=== PATIENT | male | born 1975 | race Caucasian/White ===

== ENCOUNTER 2024-04-02 10:15 | Outpatient (RCR) | payer OTHER, SELFPAY | END 2024-07-01 13:41 | disposition home or self-care (01) | PROVIDERS: PCP Family Medicine; Visit Provider Family Medicine | DX: G56.21 Lesion of ulnar nerve, right upper limb (principal); M77.01 Medial epicondylitis, right elbow; M79.641 Pain in right hand; M25.521 Pain in right elbow; Z51.89 Encounter for other specified aftercare | CPT/HCPCS: 97035; 97110; 97140; 97166; X5282 ==

== ENCOUNTER 2024-11-01 19:00 | Emergency (ER) | payer OTHER, SELFPAY ==
--- OUTSIDE RECORDS SUMMARY | 2024-11-01 19:01 | XMS_ITS | Continuity of Care Document ---
Author Organization [facility] Address [address] [place] [address] Phone Care Team Providers Care [facility] Insurance Clerk Name Role Phone Unavailable Unavailable Unavailable Allergies, Adverse Reactions, Alerts Substance Reaction Status Criticality No Known allergies Procedures Procedure Date Echo W/DOPPLER, COMPLETE Holter Monitor, Complete OFFICE/OUTPATIENT VISIT, NEW Advance Directives Directive Yes / No Effective Date File Name No Information Encounters Encounter Description Practice Location Reason(s) For Visit Diagnoses Date Provider Providers Copied on Encounter [facility], [address] [address], [place], [place], [id number], [place] tel:[phone] [facility] Main No Information Mar-0 3 No Information [facility], [address], [id number], [place] tel:[phone] [facility] Main No Information Mar-0 3 No Information Referring Provider: Len Jaquez, [facility] [address], [place], [address] . tel:[phone] [facility], [facility] [address], [id number], [place] tel:[phone] [facility] Main No Information Sep- 3 Arturo Harrington. [address] [place] [address], [id number], . tel:[phone] Referring Provider: Len Jaquez, [address] [place], [place] [address], [place], [address] . tel:[phone] OFFICE/OUTPAT IENT VISIT, NEW [facility], [facility] [address], [place], [place], [id number], tel:[phone] [facility] Main Palpitations 3 Arturo Harrington. [address] [address], [place], [place], [id number], . tel:[phone] Referring Provider: Len Jaquez, [facility] [address], [place], [address] . tel:[phone] Family History Family Member Type Diagnosis Age At Onset Father Problem (finding) coronary arterioscleros is Father Problem (finding) Myocardial infarction Payers Payer name Insurance type Covered libertarian ID Authorclementina simms(s) Jordan [id number] Social History Type Description Quantity Date Captured Comments Sex Male Smoking Status No Information Chief Complaint And Reason For Visit No Information Reason For Referral Reason For Referral No Information History Of Present Illness Encounter Date Complaint History Of Prese nt Illness No Information Functional Status Date Functional Assessmen t No Information Instructions Date Instruction Additional Infor mation No Information Assessments Type Assessment Date No Information Patient Care Teams Name Effective Dates (start - stop) Status Members No Information
--- OUTSIDE RECORDS SUMMARY | 2024-11-01 19:02 | XMS_ITS | Continuity of Care Document ---
Author Name [facility] Organization [facility] Care Team Providers Care Broadcast Systems Engineer Name Role Phone [facility] Unavailable Unavailable Problems Combined list of problems from [facility] facilities. It does not include entries that were removed or entered in error. Problem Status Onset Date Problem Type Date of Resolution Comments Source Allergic rhinitis Active Condition [place] [facility] Cervicalgia Active Condition [place] [facility] CTS - Carpal tunnel syndrome Active Condition [place] [facility] Deviated nasal septum Active Condition [place] ([facility]) Hyperlipidemia Active Condition [place] [facility] Low back pain Active Condition [place] [facility] Nasal congestion Active Condition [place] [facility] Shoulder pain Active Condition [place] [facility] Tinnitus Active Condition [place] [facility] Medications Combined list of outpatient medications from [facility] facilities.Medications provided include 1) outpatient medications from the last 15 months, and 2) patient-reported medications. Medication Details Route Status Patient Instructions Prescription Expires Prescription Number Last Dispense Date Ordering Provider Order Date Order Qty Source IBUPROFEN 600MG TAB TAKE ONE TABLET BY MOUTH THREE TIMES A DAY NEEDED ORAL ACTIVE MICHELET HARRIS 2018 [facility] MULTIVITAMI NS CAP/TAB TAKE ONE TABLET BY MOUTH EVERY DAY ORAL ACTIVE MICHELET HARRIS 2018 [facility] Immunizations Combined list of available immunizations from the [facility] facilities. Immunization Series Date Given Administered By Site Reaction Lot Number CVX Code Drug Hair Sample Matcher Status Comments Source INFLUENZA, INJECTABLE, QUADRIVALENT 2018 158 complet ed Partner: [facility]. Administe red by: RUMA LAKHANI (KUS=[phone] [id number]). Partner 3 Lot#: [id number] Mfr: SEQIRUS; Dosage: 0.5 [facility] INFLUENZA, SEASONAL, INJECTABLE 2017 141 complet ed [facility] INFLUENZA, SEASONAL, INJECTABLE 2015 141 complet ed [place] [facility] TDAP 2014 115 complet ed [facility] [employer] Encounters Combined list of: 1) Encounters from Department of Veterans Affairs facilities going backup to the last 18 months, not all [place] inpatient encounters are included; 2) Encounters from the [facility] facilities going backup to 280 months. Location Location Details Encounter Type Encounter Number Reason For Visit Attending Provider ADM Date DC Date Status Disposition Source [place] [facility] Outpatient Encounter [id number] 08/14 [facility] [place] [facility] En[facility] [id number] 09/[address] [facility] [place] [facility] En[place] [id number] 10/01 [facility] [place] [facility] [place] En[place] [id number] 03/04 [facility] [place] [facility] [place] En[place] [id number] Renato PORTILLO 03/05 [facility] [place] [facility] [place] En[facility] [id number] 03/05 [facility] [place] [facility] [place] En[place] [id number] 05/12 [facility] [place] [facility] [place] [facility] [id number] 05/13 [facility] [place] [facility] [place] En[place] [id number] 05/14 [facility] [place] [facility] [place] [facility] [id number] 05/21 [facility] [place] [facility] [place] En[place] [id number] 05/26 [facility] [place] [facility] [place] [facility] [id number] 05/27 [facility] [place] [facility] [place] En[place] [id number] 05/29 [place] [facility] [place] [facility] Outpatient Encounter [id number] 06/04 [place] [facility] [place] [facility] Outpatient Encounter [id number] 06/06 [place] [facility] [place] [facility] Outpatient Encounter [id number] 06/10 [place] [facility] [place] [facility] Outpatient Encounter [id number] 07/24 [place] [facility] [place] [facility] Outpatient Encounter [id number] 09/24 [place] [facility] [place] [facility] Outpatient Encounter [id number] 09/26 [place] [facility] [place] [facility] Outpatient Encounter [id number] 09/29 [place] [facility] [place] [facility] Outpatient Encounter [id number] 10/03 [place] [facility] [place] [facility] Outpatient Encounter [id number] 10/14 [place] [facility] [place] [facility] Outpatient Encounter [id number] 10/27 [facility] Social History Combined list of available smoking, tobacco, and other social history from Department of Defense and Veterans Affairs facilities. Social History Type Response Date Comment Sour e Tobacco smoking status [facility]-TOBACCO FORMER USER 08/01/2018 [place] ([place]) History of tobacco use [place]-TOBACCO QUIT 5 TO < 15 YRS 08/01/2018 [place] ([facility]) History of tobacco use FORMER TOBACCO US E >1Y <7Y 04/27/2016 [place] [facility] Plan of Care List of future care activities from Department of Veterans Affairs facilities. Additional future care activities may be listed in the Assessment and Plan section. Date/Time Care Activity Care Activity Detail Facili ty 09/30/2024 Consult Order COMMUNITY CARE-C HIROPRACTIC Cons Circular Clerk's Choice [facility]
--- OUTSIDE RECORDS SUMMARY | 2024-11-01 19:02 | XMS_ITS | Encounter Summary ---
Author Name [facility] Organization [facility] Address [address] [place] [address] Care Team Providers Care Valver Name Role Phone HERNÁN MUÑOZ Primary Care Provider UnavailELLIS Solano Unavailable Unavailable FAIZAN ABEBE Unavailable Unavailable MEENA LAKHANI Unavailable Unavailable CHELSEA SENA Unavailable Unavailable MELVIN PORTER Unavailable Unavailable Selected Encounter This section includes the information on record at [place] for the Encounter. Date/Time Encounter Type Encounter Description Reason Pro vider Source Oct 27, 2024 03:17 PM Outpatient Encounter COMMUNITY CARE CONSULT IHE Encounter Template Text not used by VA Plan of Treatment: Future Appointments (+ 6 months) and Future Tests (+/- 45 days) The Plan of Treatment section includes future care activities for the patient from all VA treatmentfacilities. This section includes future appointments and future orders which are active, pending or scheduled. Active, Pending, and Scheduled Orders This section includes a listing of several types of active, pending, and scheduled orders, including clinic medications orders, diagnostic test orders, procedure orders and consult orders; where the start date of the order is 45 days before the date of the Encounter or 45 days after the date of theEncounter. The data comes from all [place] treatment facilities. Test Date/Time Test Type Test Details Facility Name Sep 30, 2024 07:06 AM Consult Order COMMUNITY CARE-CHIROPRACTIC Cons Cellophane Bag Machine Operator's Choice [facility] Encounter Notes: All associated encounter notes This section contains the clinical notes associated to the Encounter. Date/Time Encounter Note(s) Provider Source Oct 27, 2024 03:17 PM NONVA NOTE: LOCAL TITLE: COMMUNITY CARE-CARE COORDINATION PLAN NOTE STANDARD TITLE: NONVA NOTE DATE OF NOTE: OCT 27, 2024@15:17 ENTRY DATE: OCT 27, 2024@15:17:28 AUTHOR: MICHELET PORTILLO EXP COSIGNER: URGENCY: STATUS: COMPLETED Patient calls needing PT for neck/shoulder issues recommended by his [facility] Primary Care provider. I told him to call the [facility] [place] PT scheduling phone # [phone] option #1 for PT and they will schedule/place referral bases on availablity of appts. /grupo/ MICHELET PORTILLO, RN Registered Nurse, [facility] Signed: 10/27/2024 15:22 MICHELET PORTILLO [facility]
--- OUTSIDE RECORDS SUMMARY | 2024-11-01 19:02 | XMS_ITS | Encounter Summary ---
Author Name [facility] Organization [facility] Address [address] [place] [address] Care Team Providers Care Director Television News Name Role Phone HERNÁN MUÑOZ Primary Care Provider UnavailELLIS Solano Unavailable Unavailable FAIZAN ABEBE Unavailable Unavailable MEENA LAKHANI Unavailable Unavailable CHELSEA SENA Unavailable Unavailable MELVIN PORTER Unavailable Unavailable Selected Encounter This section includes the information on record at [place] for the Encounter. Date/Time Encounter Type Encounter Description Reason Pro vider Source Oct 14, 2024 07:43 AM Outpatient Encounter COMMUNITY CARE CONSULT IHE Encounter [...] of theEncounter. The data comes from all [place] treatment facilities. Test Date/Time Test Type Test Details Facility Name Sep 30, 2024 07:06 AM Consult Order COMMUNITY CARE-CHIROPRACTIC Cons Account Maintenance Representative's Choice [facility] Encounter Notes: All associated encounter notes This section contains the clinical notes associated to the Encounter. Date/Time Encounter Note(s) Provider Source Oct 14, 2024 07:43 AM NONVA NOTE: LOCAL TITLE: COMMUNITY CARE PRE-AUTH LETTER (AUTOPRINT) STANDARD TITLE: NONVA NOTE DATE OF NOTE: OCT 14, 2024@07:43 ENTRY DATE: OCT 14, 2024@07:43:47 AUTHOR: ONELIA FREITAS COSIGNER: URGENCY: STATUS: COMPLETED Oct DEVIKA BAILEY [address] [place] [address] Dear DEVIKA BAILEY, Your VA provider has referred you to a provider within the community for care. Your medical care for CHIROPRACTIC has been authorized with the community care provider listed below. DO NOT REPORT TO THE [place] MEDICAL CENTER Provider info: Care has been approved for the following vendor: Office name, address, and phone number: [facility] [address] [place] [address] PH: [phone] Please contact the identified provider to schedule your community appointment. If you need assistance with this appointment, please call your facility community care office [facility] Office of Community Care at [phone] during the hours of 8:30AM - 3:00PM. Please follow up with your local [facility] community care office once this is scheduled. This step is needed to ensure your referral duration is maximized and the [place] has accurate referral information for billing purposes. Authorization Number: [id number] Referral Issue Date: Oct Expiration Date: December (subject to change based on first appointment) If you are unable to schedule this appointment or the appointment is no longer needed, please contact the community provider above for notification/rescheduling and then call the [facility] Office of Community Care at [phone] during the hours of 8:30AM - 3:00PM. If you need additional care/services not mentioned above or your authorization has and additional care is needed, please contact your primary care provider for a new referral. To review all care/service(s) approved under your referral, please go to the following link: [email or web address]) Co-Payments: If you are required to pay a VA co-payment, you will be billed by the [place] for each authorized visit that you attend. However, you are NOT REQUIRED to make co-payments to a community provider. Thank you for the opportunity to serve you. Sincerely, [place] Community Care (VACC) /grupo/ ONELIA FREITAS Reeling Machine Setup Operator Signed: 10/14/2024 07:46 ONELIA FREITAS [facility]
--- OUTSIDE RECORDS SUMMARY | 2024-11-01 19:02 | XMS_ITS | Encounter Summary ---
Author Name [facility] Organization [facility] [place] Address [address] [place] [address] Care Team Providers Care Tea Plantation Worker Name Role Phone HERNÁN MUÑOZ Primary Care Provider UnavailELLIS Solano Unavailable Unavailable FAIZAN ABEBE Unavailable Unavailable MEENA LAKHANI Unavailable Unavailable CHELSEA SENA Unavailable Unavailable MELVIN PORTER Unavailable Unavailable Selected Encounter This section includes the information on record at [place] for the Encounter. Date/Time Encounter Type Encounter Description Reason Pro vider Source Sep 24, 2024 03:36 PM Outpatient Encounter COMMUNITY CARE CONSULT IHE [...] of theEncounter. The data comes from all [place] treatment facilities. Test Date/Time Test Type Test Details Facility Name Sep 30, 2024 07:06 AM Consult Order COMMUNITY CARE-CHIROPRACTIC Cons Catalyst Plant Supervisor's Choice [facility] Encounter Notes: All associated encounter notes This section contains the clinical notes associated to the Encounter. Date/Time Encounter Note(s) Provider Source Sep 24, 2024 03:36 PM NONVA NOTE: LOCAL TITLE: COMMUNITY CARE-CARE COORDINATION PLAN NOTE STANDARD TITLE: NONVA NOTE DATE OF NOTE: SEP 24, 2024@15:36 ENTRY DATE: SEP 24, 2024@15:37:02 AUTHOR: MICHELET PORTILLO COSIGNER: URGENCY: STATUS: COMPLETED Patient calls asking about his Advanced Manufacturing Consultant Has Chiropractic Consult #[id number] Valid for 12 visits over 90 days on 09/08/2024 Referral Number: [id number] Priority: Routine Referral Issue Date: 2024-06-06 Expiration Date: 2024-09-08 First Appointment Date: 2024-06-10 Patient states he only went for 2 appts and the last was on 09/15/2024 and asks if he could get this covered by [place]. I told him unfortunately since this visit was passed the authorization period the [place] will not cover it. He is working to only pay half since vendor did not realize this as well. He was appreciative of the call back. /grupo/ MICHELET PORTILLO, RN Registered Nurse, Care in Community Signed: 09/25/2024 12:48 MICHELET PORTILLO [facility]
--- OUTSIDE RECORDS SUMMARY | 2024-11-01 19:02 | XMS_ITS | Encounter Summary ---
Author Name [facility] Organization [facility] Address [address] [place] [address] Care Team Providers Care Compensation And Hris Analyst Name Role Phone HERNÁN MUÑOZ Primary Care Provider UnavailELLIS Solano Unavailable Unavailable FAIZAN ABEBE Unavailable Unavailable MEENA LAKHANI Unavailable Unavailable CHELSEA SENA Unavailable Unavailable MELVIN PORTER Unavailable Unavailable Selected Encounter This section includes the information on record at [place] for the Encounter. Date/Time Encounter Type Encounter Description Reason Pro vider Source Sep 26, 2024 12:00 PM Outpatient Encounter COMMUNITY CARE CONSULT IHE [...] of theEncounter. The data comes from all [place] treatment facilities. Test Date/Time Test Type Test Details Facility Name Sep 30, 2024 07:06 AM Consult Order COMMUNITY CARE-CHIROPRACTIC Cons Customer Service Associate's Choice [facility] Encounter Notes: All associated encounter notes This section contains the clinical notes associated to the Encounter. Date/Time Encounter Note(s) Provider Source Sep 26, 2024 12:00 PM NONVA CONSULT: LOCAL TITLE: COMMUNITY CARE CONSULT RESULT CHIROPRACTIC STANDARD TITLE: NONVA CONSULT DATE OF NOTE: SEP 26, 2024@12:00 ENTRY DATE: SEP 29, 2024@11:23:19 AUTHOR: ARIEL ALDANA EXP COSIGNER: URGENCY: STATUS: COMPLETED VistA Imaging - Scanned Document RFAS dated 09/26/24, Cover letter states only attended one of the 12 visits approved. SCANNED DOCUMENT SIGNATURE NOT REQUIRED Electronically Filed: 09/29/2024 by: ARIEL ALDANA LPN LICENSE PRACTICAL NURSE ARIEL ALDANA [facility]
--- OUTSIDE RECORDS SUMMARY | 2024-11-01 19:02 | XMS_ITS | Clinical Summary ---
Author Organization [employer] [facility] Address [address] [place] [address] Care Team Providers Care [employer] Name Role Phone Adolfo Contreras MD Primary Care Provider Allergies No known active allergies Medications atorvastatin (LIPITOR) 20 mg tabletIndications: Hyperlipidemia, unspecified hyperlipidemia type Take 1 Tablet (20 mg) by mouth at bedtime. 90 Tablet 3 5 Active losartan-hydrochlo rothiazide, 50-12.5 mg, (HYZAAR) 50-12.5 mg tabletIndications: Benign essential HTN Take 1 Tablet by mouth once daily. 90 Tablet 3 5 Active fluticasone (50 mcg per actuation) nasal solution (FLONASE)Indicatio ns:Acute maxillary sinusitis, recurrence not specified Inhale 2 Sprays to both nostrils once daily. 16 g 12 4 025 Discontin ued(*Sophia ent states no longer taking) Active Problems Problem Noted Date Diagnosed Date Elevated coronary artery calcium score 74%ile 20 19. 11/22/2022 Benign essential HTN 09/07/2021 Near syncope 09/28/2020 Lichen planus Chronicus nipples 06/02/2020 Hyperlipidemia 08/15/2017 Chronic sinusitis 09/28/2016 Resolved Problems Problem Noted Date Diagnosed Date Resolved Date Light headed 08/16/2020 11/22/2022 Overview (08/16/2020): 07/2020 ZIO patch 3 runs of NSVT, longest 15 seconds. Discussed with cardiology 08/16/2020: Given normal echo and normal CT angiogram (04/2019), no further work- up necessary. Patient reports feeling much better after frontal sinus surgery on 07/08/2020. Encounters Date Type Department Care Team Description 10/10/2024 9:15 AM TRUCK STRIKER Ancillary Procedure [facility] [address] [place] [facility] [facility] [place] [address] 10/10/2024 8:25 AM TRUCK STRIKER Office Visit [facility] [address] [place] [address] Adolfo Contreras MD Neck Pain/problem (Discuss neck concerns) 10/10/2024 Travel 10/08/2024 9:20 AM TRUCK STRIKER Telemedicine [facility] [place] - [address] [place] [address] Delmis Villar NP CV Electrophysiology Est 10/08/2024 Telephone [facility] [address] [place] [address] Nani Sinclair RN, CCRN LINQ Removal 10/08/2024 Travel 09/24/2024 Telephone [facility] [place] [address] On License Of [facility] [place] [phone] Brittany Gomez RN 09/17/2024 3:20 PM TRUCK STRIKER Office Visit [facility] [address] [place] [facility] [place] [address] Adolfo Contreras MD Physical (48 year old ); Concerns (brain fog - present for years ) 09/17/2024 8:45 AM TRUCK STRIKER Orders Only [facility] [address] [place] [facility] [facility] [place] [address] Lab, [place] [facility] 09/17/2024 Travel 09/17/2024 Orders Only [facility] [address] [facility] [place] [facility] [place] [address] Adolfo Contreras MD <No scans attached> from Last 3 Months Immunizations Immunization Administration Dates Next Due AMB Influenza, IIV4 PF (=>6 mos Flulaval,Fluzone Fluarix)(Flu Clinic Only) 05/10/2018 Hepatitis A (Adult) 07/05/1998,07/21/1997 Hepatitis B (Adult) 01/05/2015 Influenza A (H1N1), Inactivated 08/05/2009 Influenza Virus, Unspecified 07/05/1998 Influenza, IIV3 (Age >=3 years) 05/10/20 18,04/27/2016,05/21/2015,2013,05/07/2013,05/03/2012,04/07/2011,1 ,05/28/2009,06/26/2008, 006,06/20/2005 Influenza, IIV4 06/24/2023,07/28/2021 Influenza, IIV4 (=>6mos) MDV 05/03/2019 Influenza, Whole Virus 04/07/2011,05/14/2010, Influenza, split (incl. jennifer fied surface antigen) 05/28/2009,06/26/2008,07/12/2006,2004 Influenza,CCIIV4 PRESERV FREE 05/20/2022, 020,05/18/2017 MMR 03/23/1997,01/07/1996,02/19/1994 Measles 07/05/1998 Measles-Rubella 12/31/2003 Oral Polio Vaccine 02/21/1994 Td (Age >=7 Years) 12/22/2006,07/21/1997, 988 Tdap 12/23/2018,03/17/2016,01/05/2015 Tetanus Toxoid 07/21/1997 Tuberculin (PPD) 01/05/2015,12/18/2008 Typhoid (injectable) 01/03/2006 Typhoid Parenteral,Killed 12/31/2003 Typhoid, Unspecified 07/21/1997,08/28/1996 Varicella Vaccine 01/05/2015 Yellow Fever 12/22/2006,03/23/1998,03/23/1997 Family History Medical History Relation Name Comments Hyperlipidemia Brother 1 Hyperlipidemia Brother 2 Heart attack Father Hyperlipidemia Father Heart attack Mother Hyperlipidemia Mother Other Paternal Grandfather at 87. Anesthesia Problem No Family History Cancer-colon No Family History Cancer-prostate No Family History Diabetes No Family History Relation Name Status Comments Brother 1 Alive Brother 2 Alive Brother 3 Alive Brother 4 Alive Brother 5 Alive Daughter 1 Alive Daughter 2 Alive Daughter 3 Alive Father Alive Mother Alive Paternal Grandfather Sister Alive Social History Tobacco Use Types Packs/Day Years Used Date Smoking Tobacco: Former Smokeless Tobacco: Former Chew Tobacco Cessation:Counseling Given: No Alcohol Use Standard Drinks/Week Comments Yes 0 (1 standard drink = 0.6 oz pure alcohol) twice weekly, 1-2 drinks at a sitting PHQ-2 Answer Date Recorded PHQ-2 TOTAL SCORE 0 11/09/2023 Social Connections Answer Date Recorded Do you often feel lonely or isolated from those around you? 0 11/09/2023 Financial Resource Strain Answer Date R ecorded Difficulty of Paying Living Expenses 3 11/09/2023 Difficulty of Paying Living Expenses Not on file 11/09/2023 Food Insecurity Answer Date Recorded Do you worry your food will run out before you are able to buy more? 1 11/09/2023 Transportation Needs Answer Date Record ed Does lack of transportation keep you from medica l appointments? 1 11/09/2023 Does lack of transportation keep you from work, meetings or getting things that you need? 1 11/09/2023 Housing Stability Answer Date Recorded What is your housing situation today? 1 11/09/2023 Utilities Answer Date Recorded Do you have trouble paying f or utilities (for example, heat, electricity, water, phone)? 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 Not on file Not on file Obstetrics History Last Filed Vital Signs Vital Sign Reading Time Taken Comments Blood Pressure 120/83 10/10/2024 8:15 AM TRUCK STRIKER Pulse 78 10/10/2024 8:15 AM TRUCK STRIKER Temperature 36.7 C (98 F) 08/14/2023 10:42 AM TRUCK STRIKER Respiratory Rate 16 11/05/2021 4:00 PM CDT Oxygen Saturation 97% 10/10/2024 8:15 AM TRUCK STRIKER Inhaled Oxygen Concentration - - Weight 83.6 kg (184 lb 6.4 oz) 10/10/2024 8:15 A M TRUCK STRIKER Height 180 cm (5' 10.87) 09/17/2024 3:24 PM TRUCK STRIKER Body Mass Index 25.82 09/17/2024 3:24 PM TRUCK STRIKER Plan of Treatment Upcoming Encounters Date Type Department Care Team (Late st Contact Info) Description 11/18/2024 2:00 PM CDT Appointment [facility] [address] [place] [address] Al Rey MD [address] [facility] [address] [place] [address] 12/15/2024 8:30 AM CDT Office Visit [facility] [place] [facility] [place] [address] [facility] [address] [place] [phone] Al Rey MD [address] [facility] [address] [place] [address] Health Maintenance Due Date Last Done Comments Pneumococcal series for age 50+ (1 of 2 - PCV) 1992 Colonoscopy through age 75 2018 Zoster (shingles) series for age 50+ (1 of 2) 12/11/2023 COVID-19 vaccine series (2023- season) 2024 Influenza Vaccine (#1) 2024 , 05/20/2022, 07/28/2021, Additional history exists Depression screening for age 12+ 11/08/2024 11/09/2023, 09/21/2021, 09/07/2021, Additional history exists BMI (ht and wt on same day) for age 18+ 09/17/2025 09/17/2024, 08/14/2023, 10/24/2022, Additional history exists Tetanus booster 12/23/2028 12/23/2018, 03/06, 01/05/2015, Additional history exists Lipids for age 45-75 09/17/2029 09/17/2024, 11/09/2023, 11/22/2022, Additional history exists Tdap Completed 12/23/2018, 03/06, 01/05/2015 Hepatitis C screening for ag e 18-79 Completed 04/03/2022 HIV for age 15-65 Completed 11/22/2022 Medical Devices Implanted Type Area Bunch Maker Hand Device Identifier Shelf Expiration Date Model / Serial / Lot Stent Ent Reg Steroid-Releas ing [employer] Bio[employer] - [id number] Implanted:Qty: 1 on 03/07/2017 by Kartik Doran MD at [facility] Left: [employer] 12/05/2017 [id number]# / / [id number] Stent Ent Reg Steroid-Releas ing [employer] Bio[employer]orb - [id number] Implanted:Qty: 1 on 03/07/2017 by Kartik Doran MD at [facility] Right: [employer]ose [employer] 05/07/2018 [id number]# / / [id number] Procedures Procedure Name Priority Date/Time Associated Diagnosis Comments XR SPINE CERVICAL 3 VIEWS Routine 10/10/2024 9:11 AM TRUCK STRIKER Neck pain, chronic LIPID PANEL W REFLEX MEASURED LDL Routine 09/17/2024 8:46 AM TRUCK STRIKER Hyperlipidemia, unspecified hyperlipidemia type HEMOGLOBIN A1C Routine 09/17/2024 8:46 AM TRUCK STRIKER Prediabetes BASIC METABOLIC PANEL Routine 09/17/2024 8:46 AM TRUCK STRIKER Benign essential HTN PSA TOTAL Routine 09/17/2024 8:46 AM TRUCK STRIKER Prostate cancer screening LC HIV-1/O/2, 4TH GENERATION Routine 11/22/2022 8:55 AM CDT Encounter for screening for HIV ANTI HCV Routine 04/03/2022 10:06 AM CDT Need for hepatitis C screening test from Last 3 Months or Most Recently Relevant to Health Maintenance Results * XR SPINE CERVICAL 3 VIEWS (10/10/2024 9:11 AM TRUCK STRIKER) Anatomical Region Laterality Modality CERVICAL SPINE Computed Radiogr aphy 10/10/2024 10:3 1 AM TRUCK STRIKER Impressions 10/10/2024 10:31 AM TRUCK STRIKER 1. No radiographic evidence of acute osseous injury. Dictated by Leland Piper MD @ 10/10/2024 10:31:55 AM (Electronically Signed) Narrative 10/10/2024 10:31 AM TRUCK STRIKER For Patients: As a result of the Cures Act, medical imaging exams and procedure reports are released immediately into your electronic medical record. You may view this report before your referring provider. If you have questions, please contact your health care provider. INDICATION: Neck pain. FINDINGS: Three views of the cervical spine are submitted. No comparison. The overall stature and alignment of the cervical spine is within normal limits. The prevertebral soft tissues, dens and lateral masses are within normal limits. Intervertebral disc space height appears within normal limits. Procedure Note Cristhian Piper, DO - 10/10/2024 For Patients: As a result of the Cures Act, medical imagingexams and procedure reports are released immediately into your electronicmedical record. You may view this report before your referring provider.If you have questions, please contact your health care provider. INDICATION: Neck pain. FINDINGS: Three views of the cervical spine are submitted. No comparison. The overall stature and alignment of the cervical spine is within normallimits. The prevertebral soft tissues, dens and lateral masses are withinnormal limits. Intervertebral disc space height appears within normallimits. IMPRESSION: 1. No radiographic evidence of acute osseous injury. Dictated by Leland Piper MD @ 10/10/2024 10:31:55 AM (Electronically Signed) Adolfo Contreras MD GENERAL IMAGING Final Result * HEMOGLOBIN A1C (09/17/2024 8:46 AM TRUCK STRIKER) HEMOGLOBIN A1C 5.6 <5.7 % of total Hgb [facility] Comment: For the purpose of screening for the presence of diabetes: <5.7% Consistent with the absence of diabetes 5.7-6.4% Consistent with increased risk for diabetes (prediabetes) > or =6.5% Consistent with diabetes This assay result is consistent with a decreased risk of diabetes. Currently, no consensus exists regarding use of hemoglobin A1c for diagnosis of diabetes in children. According to [place] Diabetes Association (ADA) guidelines, hemoglobin A1c <7.0% represents optimal control in non- diabetic patients. Different metrics may apply to specific patient populations. Standards of Medical Care in Diabetes(ADA). Blood BLOOD SPECIMEN / Unknown 09/17/2024 8:46 AM TRUCK STRIKER 09/17/2024 8:47 AM TRUCK STRIKER Adolfo Contreras MD CHEMISTRY Final Result Decision [facility] [address] [place] [address], [facility] [place] [address] [place] [address] * LIPID PANEL W REFLEX MEASURED LDL (09/17/2024 8:46 AM TRUCK STRIKER) [facility] Signature CHOLESTEROL, TOTAL 160 <200 mg/dL [facility] HDL CHOLESTEROL 41 > OR = 40 mg/dL [facility] TRIGLYCERIDES 104 <150 mg/dL [facility] LDL-CHOLESTEROL 99 mg/dL (calc) [facility] Comment: Reference range: <100 Desirable range <100 mg/dL for primary prevention; <70 mg/dL for patients with CHD or diabetic patients with > or = 2 CHD risk factors. LDL-C is now calculated using the Roc-Russel calculation, which is a validated novel method providing better accuracy than the Friedewald equation in the estimation of LDL-C. Roc STEVENS et al. DENICE. 2013;310(19): 3635-8015 (http://education.[employer]/faq/GRS842) CHOL/HDLC RATIO 3.9 <5.0 (calc) [facility] NON HDL CHOLESTEROL 119 <130 mg/dL (calc) [facility] Comment: For patients with diabetes plus 1 major ASCVD risk factor, treating to a non-HDL-C goal of <100 mg/dL (LDL-C of <70 mg/dL) is considered a therapeutic option. Blood BLOOD SPECIMEN / Unknown 09/17/2024 8:46 AM TRUCK STRIKER 09/17/2024 8:47 AM TRUCK STRIKER Adolfo Contreras MD CHEMISTRY Final Result [facility] [address] [place] [address], [place] [phone] [facility] [place] [address] [place] [address] * PSA TOTAL (DIAG OR SCREEN) (09/17/2024 8:46 AM TRUCK STRIKER) PSA, TOTAL 0.38 < OR = 4.00 ng/mL [facility] Comment: The total PSA value from this assay system is standardized against the WHO standard. The test result will be approximately 20% lower when compared to the equimolar-standardized total PSA (Yaneth [place]). Comparison of serial PSA results should be interpreted with this fact in mind. This test was performed using the Siemens chemiluminescent method. Values obtained from different assay methods cannot be used interchangeably. PSA levels, regardless of value, should not be interpreted as absolute evidence of the presence or absence of disease. Blood BLOOD SPECIMEN / Unknown 09/17/2024 8:46 AM TRUCK STRIKER 09/17/2024 8:47 AM TRUCK STRIKER us Adolfo Contreras MD CHEMISTRY Final Result Decision [facility] [address] [place] [address], [place] [phone] [facility] [address] [place] [address] * BASIC METABOLIC PANEL (09/17/2024 8:46 AM TRUCK STRIKER) GLUCOSE 98 65 - 99 mg/dL [facility] Comment: Fasting reference interval UREA NITROGEN (BUN) 15 7 - 25 mg/dL [facility] CREATININE 1.01 0.70 - 1.30 mg/dL [facility] EGFR 91 > OR = 60 mL/min/1. 73m2 [facility] BUN/CREATININE RATIO SEE NOTE: 6 - 22 (calc) [facility] Comment: Not Reported: BUN and Creatinine are within reference range. SODIUM 141 135 - 146 mmol/L [facility] POTASSIUM 4.0 3.5 - 5.3 mmol/L [facility] CHLORIDE 101 98 - 110 mmol/L [facility] CARBON DIOXIDE 28 20 - 32 mmol/L [facility] ELECTROLYTE BALANCE 12 7 - 17 mmol/L (calc) [facility] CALCIUM 9.7 8.6 - 10.3 mg/dL [facility] Blood BLOOD SPECIMEN / Unknown 09/17/2024 8:46 AM TRUCK STRIKER 09/17/2024 8:47 AM TRUCK STRIKER Adolfo Contreras MD CHEMISTRY Final Result Decision [facility] [address] [place] [address], [facility] [address] [place] [address] * LC HIV-1/O/2, 4TH GENERATION (11/22/2022 8:55 AM CDT) HIV Scr 4th Gen Non Reactive Non Reactive 11/24/2022 1:09 PM CDT [facility] ([facility] Comment: HIV Negative HIV-1/HIV-2 antibodies and HIV-1 p24 antigen were NOT detected. There is no laboratory evidence of HIV infection. Blood BLOOD SPECIMEN / Unknown Venipuncture / Unknown 11/22/2022 8:55 AM CDT 11/22/2022 8:56 AM CDT Narrative [facility] ([facility]) - 11/24/2022 1:09 PM CDT Performed at: [address] [place] [id number] Locator: Chemo Husain MD, Phone: [phone] us Adolfo Contreras MD LABORATORY Final Result [facility] ([facility]) [facility] [place] [address], [place] * ANTI HCV (04/03/2022 10:06 AM CDT) HEPATITIS C ANTIBODY Non-React rachid Non-React rachid 04/03/2022 5:57 PM CDT [facility] Comment:Antibodies to HCV no t detected; does not exclude the possibility of exposure to HCV. Blood BLOOD SPECIMEN / Unknown Venipuncture / Unknown 04/03/2022 10:06 AM CDT 04/03/2022 10:07 AM CDT us Adolfo Contreras MD SEND OUTS Final Result [facility] [address] [place] [address], [place] from Last 3 Months or Most Recently Relevant to Health Maintenance Insurance [facility] Advance Directives * Full Code (Latest Code Status on File) Date Activated Date Inactivated Comments 09/28/2020 10:56 AM 09/28/2020 4:03 PM Question Answer Comments Code Status Discussion: Not Discussed * Full Code Date Activated Date Inactivated Comments 03/07/2017 10:21 AM 03/07/2017 7:15 PM Care Teams [employer] Relationship Specialty Start Date End Date Adolfo Contreras MD [address] [place] [address] PCP - General Family Practice 07/28/19
--- OUTSIDE RECORDS SUMMARY | 2024-11-01 19:02 | XMS_ITS | Encounter Summary ---
Author Name [facility] Organization [facility] Address [address] [place] [address] Care Team Providers Care Restaurant Shift Leader Name Role Phone HERNÁN MUÑOZ Primary Care Provider UnavailELLIS Solano Unavailable Unavailable FAIZAN ABEBE Unavailable Unavailable MEENA LAKHANI Unavailable Unavailable CHELSEA SENA Unavailable Unavailable MELVIN PORTER Unavailable Unavailable Selected Encounter This section includes the information on record at [facility] for the Encounter. Date/Time Encounter Type Encounter Description Reason Pro vider Source Oct 03, 2024 11:25 AM Outpatient Encounter COMMUNITY CARE CONSULT IHE [...] of theEncounter. The data comes from all [facility] treatment facilities. Test Date/Time Test Type Test Details Facility Name Sep 30, 2024 07:06 AM Consult Order COMMUNITY CARE-CHIROPRACTIC [place] [facility] Encounter Notes: All associated encounter notes This section contains the clinical notes associated to the Encounter. Date/Time Encounter Note(s) Provider Source Oct 03, 2024 11:25 AM NONVA NOTE: LOCAL TITLE: COMMUNITY CARE-CARE COORDINATION PLAN NOTE STANDARD TITLE: NONVA NOTE DATE OF NOTE: OCT 03, 2024@11:25 ENTRY DATE: OCT 03, 2024@11:25:27 AUTHOR: MICHELET PORTILLO EXP COSIGNER: URGENCY: STATUS: COMPLETED Patient calls asking has started getting vertigo issues and has neck problems. Talks about 0% service connection and where to go from here. I told him to make an appt with his CC PCP to discuss. He is aware that imaging if needed is covered under his current CC PCP consult. If his doctor would order EMG or referred to a specialist that is not covered and would need RFS sent to [facility] for preauthorization prior to appt to assure [facility] payment. I told him should he have questions after diagnosis of service connection to discuss with [facility]. He will call me after appt to discuss what is needed for his work-up. /grupo/ MICHELET PORTILLO, RN Registered Nurse, Care in [facility] Signed: 10/03/2024 11:33 MICHELET PORTILLO [facility]
--- OUTSIDE RECORDS SUMMARY | 2024-11-01 19:02 | XMS_ITS | Encounter Summary ---
Author Name [facility] Address [address] [place] [id number] Care Team Providers Care Contract Clerk Automobile Name Role Phone HERNÁN MUÑOZ Primary Care Provider UnavailELLIS Solano Unavailable Unavailable FAIAZN ABEBE Unavailable Unavailable MEENA LAKHANI Unavailable Unavailable CHELSEA SENA Unavailable Unavailable MELVIN PORTER Unavailable Unavailable Selected Encounter This section includes the information on record at [place] for the Encounter. Date/Time Encounter Type Encounter Description Reason Pro vider Source Sep 29, 2024 11:25 AM Outpatient Encounter COMMUNITY CARE [...] of theEncounter. The data comes from all [place] treatment facilities. Test Date/Time Test Type Test Details Facility Name Sep 30, 2024 07:06 AM Consult Order COMMUNITY CARE-CHIROPRACTIC Cons [employer] Manager[facility] Encounter Notes: All associated encounter notes This section contains the clinical notes associated to the Encounter. Date/Time Encounter Note(s) Provider Source Sep 30, 2024 07:09 AM ADDENDUM: LOCAL TITLE: Addendum STANDARD TITLE: ADDENDUM DATE OF NOTE: SEP 30, 2024@07:09:37 ENTRY DATE: SEP 30, 2024@07:09:38 AUTHOR: BRIDGETT SHEPHERD EXP COSIGNER: URGENCY: STATUS: COMPLETED Records reviewed in response to above notification with placement of the following consult: Chiropractic consult #[id number]; this consult will need to go through the RCI process for this drive time eligible patient. /grupo/ BRIDGETT SHEPHERD MD STAFF PHYSICIAN Signed: 09/30/2024 07:11 Receipt Acknowledged By: 09/30/2024 07:17 /grupo/ MICHELET PORTILLO RN Registered Nurse, Care in Community 09/30/2024 07:20 /grupo/ ARIEL ALDANA LPN LICENSE PRACTICAL NURSE ====== --- Original Document --- 09/29/24 COMMUNITY CARE-REQUEST FOR SERVICE NOTE: PACT: Please address Referral for additional services was received from patient's CHIROPRACTIC Provider, Danilo Doss. Please see RFAS and notes uploaded to CHIROPRACTIC, Consult #: [id number] Authorization 09/08/24. has used 1 of 12 visits. Alerting PACT for review and placement of new consult if indicated. RFS and records uploaded to [facility] note dated 09/26/24 for details ACTION NEEDED: Place new consult if clinically indicated, thank you. Please ensure plan of care is communicated to if new consult is not entered. [facility] Care [employer] ASSEMBLER to contact with questions regarding this care: DANIEL Jolley /grupo/ ARIEL ALDANA LPN LICENSE PRACTICAL NURSE Signed: 09/29/2024 11:27 Receipt Acknowledged By: 09/30/2024 07:09 /carlitos SHEPHERD MD STAFF PHYSICIAN BRIDGETT SHEPHERD [facility] Sep 29, 2024 11:25 AM NONVA NOTE: LOCAL TITLE: COMMUNITY CARE-REQUEST FOR SERVICE NOTE STANDARD TITLE: NONVA NOTE DATE OF NOTE: SEP 29, 2024@11:25 ENTRY DATE: SEP 29, 2024@11:25:56 AUTHOR: ARIEL ALDANA EXP COSIGNER: URGENCY: STATUS: COMPLETED COMMUNITY CARE-REQUEST FOR SERVICE NOTE Has ADDENDA PACT: Please address Referral for additional services was received from patient's CHIROPRACTIC Provider, Danilo Doss. Please see RFAS and notes uploaded to CHIROPRACTIC, Consult #: [id number] Authorization 09/08/24. Swisher has used 1 of 12 visits. Alerting PACT for review and placement of new consult if indicated. RFS and records uploaded to [facility] note dated 09/26/24 for details ACTION NEEDED: Place new consult if clinically indicated, thank you. Please ensure plan of care is communicated to if new consult is not entered. [facility] Care [employer] ASSEM[employer]ER to contact with questions regarding this care: DANIEL Jolley /carlitos ALDANA LPN LICENSE PRACTICAL NURSE Signed: 09/29/2024 11:27 Receipt Acknowledged By: 09/30/2024 07:09 /carlitos SHEPHERD MD STAFF PHYSICIAN 09/30/2024 ADDENDUM STATUS: COMPLETED Records reviewed in response to above notification with placement of the following consult: Chiropractic consult #[id number]; this consult will need to go through the RCI process for this drive time eligible patient. /carlitos SHEPHERD MD STAFF PHYSICIAN Signed: 09/30/2024 07:11 Receipt Acknowledged By: * AWAITING SIGNATURE * MICHELET PORTILLO * AWAITING SIGNATURE * ARIEL ALDANA KATHLEEN J [facility]
--- OUTSIDE RECORDS SUMMARY | 2024-11-01 19:02 | XMS_ITS | Patient Health Record ---
Author Organization [facility], [facility] Address [address] [place] [address] Support Name Relationship Address Phone Vito Roth Guarantor Unknown Unavailabl e Reason For Referral No Information Plan Of Treatment No Information Insurance Providers Payer Name Payer Address Payer Phone Subscriber Number Group Number Insured Name Patient Relationship to Insured Coverage Start Date Coverage End Date [employer] - [address] [phone] Vito Olivares Self - patient is the insured
[2024-11-01 19:05] VITALS: BP 143/87; PULSE 87; RESP 16; TEMP 36.8; O2SAT 97; BMI 25.9
--- NOTE | 2024-11-01 20:32 | ED.WOUNDLAC ---
HPI - Wound/Laceration General Date Seen: 11/01/24 Chief Complaint: Laceration/Wound Stated Complaint: R pinky finger lac Time Seen by Provider: 11/01/24 19:02 Source: patient and family Mode of arrival: ambulatory Limitations: no limitations History of Present Illness HPI narrative: This pleasant 48-year-old gentleman presents here with his significant other for a laceration continues to bleed, and hurts when he touches it. Comes in now for definitive management. 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 Laceration occurred when he stuck his finger into cabinet, and the food and beverage attendant blade caught him Place: home Patient tetanus UTD: Yes Context: accidental Associated symptoms: none Treatments prior to arrival: bandage Related Data Home Medications ?Medication ?Instructions ?Recorded ?Confirmed atorvastatin 20 mg tablet 20 mg PO DAILY 11/01/24 11/01/24 losartan 50 mg-hydrochlorothiazide 1 tab PO DAILY 11/01/24 11/01/24 12.5 mg tablet Allergies Allergy/AdvReac Type Severity Reaction Status Date / Time No Known Drug Allergies Allergy Verified 11/01/24 19:10 Review of Systems Status of ROS: Reports: 10 or more systems reviewed and unremarkable except as noted in History and below Exam Narrative: Exam Narrative: Exam shows approximately 2.5 cm laceration to his left 5th her right 5th finger. Is slightly gaping, it is over the pad surface, on the lateral side. Good IP flexion extension, good D IP and PIP flexion also. Sensation is normal cap refill normal. Interdigital block is done with approximately 4 mL of Marcaine 0.25% this resulted in good anesthesia. I then cleaned the wound out with Hibiclens, and irrigation x2 100 mL. I was then able to close this with 5 simple 5 0 Prolene sutures. To good affect, minimal blood loss of less than 5 mL, no complications. He will be put in a bacitracin dry dressing with a stack finger splint that he can use also, sutures should come out in 10 days. Const: Vital Signs, click to edit/add: Vital Signs - 24 hr 11/01/24 19:05 Temperature 98.2 F Pulse Rate [Pulse Oximeter] 87 Respiratory Rate 16 Blood Pressure [Ri ght Upper Arm] 143/87 H Pulse Oximetry 97 Oxygen Delivery Me thod Room Air Documenting provider has reviewed patient's vital signs: yes Course Vital Signs Vital signs: Initial Vital Signs Temperature 98.2 F 11/01/24 19:05 Temperature Source Temporal Artery Scan 11/01/24 19:05 Pulse Rate 87 11/01/24 19:05 Respiratory Rate 16 11/01/24 19:05 Blood Pressure 143/87 H 11/01/24 19:05 Blood Pressure Mean 105 11/01/24 19:05 Pulse Oximetry 97 11/01/24 19:05 Oxygen Delivery Method Room Air 11/01/24 19:05 Vital Signs Temperature 98.2 F 11/01/24 19:05 Pulse Rate 87 11/01/24 19:05 Respiratory Rate 16 11/01/24 19:05 Blood Pressure 143/87 H 11/01/24 19:05 Pulse Oximetry 97 11/01/24 19:05 Oxygen Delivery Method Room Air 11/01/24 19:05 Temperature 98.2 F 11/01/24 19:05 Pulse Rate 87 11/01/24 19:05 Respiratory Rate 16 11/01/24 19:05 Blood Pressure 143/87 H 11/01/24 19:05 Pulse Oximetry 97 11/01/24 19:05 Oxygen Delivery Method Room Air 11/01/24 19:05 Discharge Plan Discharge Clinical Impression: Laceration Patient Disposition: Home w/ Parent or Adult Condition: Stable Instructions: Finger Laceration (ED) Additional Instructions: Home, rest, use of bacitracin daily on the wound, take antibiotics as directed, to try to prevent infection. Probiotics with these also has aching give you some loose stools. Stitches should come out in 10 days this can be done at her regular clinic, signs of infection such as increasing pain redness swelling she come back and be seen. Wear your splint for the next 10 days this to decrease the chance of infection and also make it heal better Activity Level: Light activity Discharge Diet: Regular Prescriptions: No Action atorvastatin 20 mg tablet 20 mg PO DAILY losartan-hydrochlorothiazide 50-12.5 mg tablet 1 tab PO DAILY Follow Up/Referrals: Adolfo Contreras MD [Primary Care Provider] - Stand Alone Forms: MyHealth Info Instructions
--- OUTSIDE RECORDS SUMMARY | 2024-11-01 20:35 | XMS_ITS | Continuity of Care Document ---
Author Organization [facility] Address [address] [place] [address] Phone Care Team Providers Care Grader Green Meat Name Role Phone Unavailable Unavailable Unavailable Allergies, Adverse Reactions, Alerts Substance Reaction Status Criticality No Known allergies Procedures Procedure Date Echo W/DOPPLER, COMPLETE Holter Monitor, Complete OFFICE/OUTPATIENT VISIT, NEW Advance Directives Directive Yes / No Effective Date File Name No Information Encounters Encounter Description Practice Location Reason(s) For Visit Diagnoses Date Provider Providers Copied on Encounter [facility], [address] [address], [place], [place], [id number], [place] tel:[phone] [facility] Main No Information Mar-0 3 No Information [facility], [address], [id number], [place] tel:[phone] [facility] Main No Information Mar-0 3 No Information Referring Provider: Len Jaquez, [facility], [place], [address] . tel:[phone] [facility], [facility], [id number], [place] tel:[phone] [facility] Main No Information Sep- 3 Arturo Harrington. [address] [place] [address], [id number], . tel:[phone] Referring Provider: Len Jaquez, [address] [place], [place] [address], [place], [address] . tel:[phone] OFFICE/OUTPAT IENT VISIT, NEW [facility], [facility] [address], [place], [place], [id number], tel:[phone] [facility] Main Palpitations 3 Arturo Harrington. [address] [address], [place], [place], [id number], . tel:[phone] Referring Provider: Len Jaquez, [facility] [address], [place], [address] . tel:[phone] Family History Family Member Type Diagnosis Age At Onset Father Problem (finding) coronary arterioscleros is Father Problem (finding) Myocardial infarction Payers Payer name Insurance type Covered republican ID Authorclementina simms(s) Jordan [id number] Social History Type Description Quantity Date Captured [...]
--- OUTSIDE RECORDS SUMMARY | 2024-11-01 20:35 | XMS_ITS | Clinical Summary ---
Author Organization [facility] Address [address] [place] [id number] Care Team Providers Care Strap Machine Operator Automatic Name Role Phone Adolfo Contreras MD Primary [...] Department Care Team Description 10/10/2024 9:15 AM ASSOCIATE DIRECTOR QA Ancillary Procedure [facility] [address] [facility] [place] [address] 10/10/2024 8:25 AM ASSOCIATE DIRECTOR QA Office Visit [facility] [address] [place] [address] Adolfo Contreras MD Neck Pain/problem (Discuss neck concerns) 10/10/2024 Travel 10/08/2024 9:20 AM ASSOCIATE DIRECTOR QA Telemedicine [facility] [address] [place] [address] Delmis Villar NP CV Electrophysiology Est 10/08/2024 Telephone [facility] [address] [place] [address] Nani Sinclair RN, CCRN LINQ Removal 10/08/2024 Travel 09/24/2024 Telephone [facility] [address] [facility] [place] [phone] Brittany Gomez RN 09/17/2024 3:20 PM ASSOCIATE DIRECTOR QA Office Visit [facility] [address] [facility] [address] Adolfo Contreras MD Physical (48 year old ); Concerns (brain fog - present for years ) 09/17/2024 8:45 AM ASSOCIATE DIRECTOR QA Orders Only [facility] [address] [facility] [place] [address] Lab, [place] [facility] 09/17/2024 Travel 09/17/2024 Orders Only [facility] [address] [facility] [place] [address] Adolfo Contreras MD <No scans attached> from [...] on file Legal Sex Male 10:19 AM ASSOCIATE DIRECTOR QA Gender Identity Not on file Sexual Orientation Not on file 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 Not on file Not on file Not on file Obstetrics History Last Filed Vital Signs Vital Sign Reading Time Taken Comments Blood Pressure 120/83 10/10/2024 8:15 AM ASSOCIATE DIRECTOR QA Pulse 78 10/10/2024 8:15 AM ASSOCIATE DIRECTOR QA Temperature 36.7 C (98 F) 08/14/2023 10:42 AM ASSOCIATE DIRECTOR QA Respiratory Rate 16 11/05/2021 4:00 PM CDT Oxygen Saturation 97% 10/10/2024 8:15 AM ASSOCIATE DIRECTOR QA Inhaled Oxygen Concentration - - Weight 83.6 kg (184 lb 6.4 oz) 10/10/2024 8:15 A M ASSOCIATE DIRECTOR QA Height 180 cm (5' 10.87) 09/17/2024 3:24 PM ASSOCIATE DIRECTOR QA Body Mass Index 25.82 09/17/2024 3:24 PM ASSOCIATE DIRECTOR QA Plan of Treatment Upcoming Encounters Date Type Department Care Team (Late st Contact Info) Description 11/11/2024 8:25 AM CDT Office Visit [facility] [address] [place] [address] Adolof Contreras MD [address] [place] [address] 11/18/2024 2:00 PM CDT Appointment [facility] [address] [facility] [facility] [address] [place] [address] Al Rey MD [address] [facility] [address] [place] [address] 12/15/2024 8:30 AM CDT Office Visit [facility] [place] [address] [facility] [address] [place] [address] Al Rey MD [address] [facility] [address] [place] [address] Health Maintenance Due Date Last Done Comments Pneumococcal series for age 50+ (1 of 2 - PCV) 1992 Colonoscopy through age 75 2018 Zoster (shingles) series for age 50+ (1 of 2) 12/11/2023 COVID-19 vaccine series (1 - 2023- season) 2024 Influenza Vaccine (#1) 2024 , [...] Completed 11/22/2022 Medical Devices Implanted Type Area Melting Operator Device Identifier Shelf Expiration Date Model / Serial / Lot Stent Ent Reg Steroid-Releas ing [employer] - [id number] Implanted:Qty: 1 on 03/07/2017 by Kartik Doran MD at [facility] Left: [employer] 12/05/2017 [id number]# / / [id number] Stent Ent Reg Steroid-Releas ing [employer] Bio[employer]orb - [id number] Implanted:Qty: 1 on 03/07/2017 by Kartik Doran MD at [facility] Right: [employer]ose [employer] 05/07/2018 [id number]# / / [id number] Procedures Procedure Name Priority Date/Time Associated Diagnosis Comments XR SPINE CERVICAL 3 VIEWS Routine 10/10/2024 9:11 AM ASSOCIATE DIRECTOR QA Neck pain, chronic LIPID PANEL W REFLEX MEASURED LDL Routine 09/17/2024 8:46 AM ASSOCIATE DIRECTOR QA Hyperlipidemia, unspecified hyperlipidemia type HEMOGLOBIN A1C Routine 09/17/2024 8:46 AM ASSOCIATE DIRECTOR QA Prediabetes BASIC METABOLIC PANEL Routine 09/17/2024 8:46 AM ASSOCIATE DIRECTOR QA Benign essential HTN PSA TOTAL Routine 09/17/2024 8:46 AM ASSOCIATE DIRECTOR QA Prostate cancer screening LC HIV-1/O/2, 4TH GENERATION Routine 11/22/2022 8:55 AM CDT Encounter for screening for HIV ANTI HCV Routine 04/03/2022 10:06 AM CDT Need for hepatitis C screening test from Last 3 Months or Most Recently Relevant to Health Maintenance Results * XR SPINE CERVICAL 3 VIEWS (10/10/2024 9:11 AM ASSOCIATE DIRECTOR QA) Anatomical Region Laterality Modality CERVICAL SPINE Computed Radiogr aphy 10/10/2024 10:3 1 AM ASSOCIATE DIRECTOR QA Impressions 10/10/2024 10:31 AM ASSOCIATE DIRECTOR QA 1. No radiographic evidence of acute osseous injury. Dictated by Leland Piper MD @ 10/10/2024 10:31:55 AM (Electronically Signed) Narrative 10/10/2024 10:31 AM ASSOCIATE DIRECTOR QA For Patients: As a result of the [...] MD @ 10/10/2024 10:31:55 AM (Electronically Signed) us Adolfo Contreras MD GENERAL IMAGING Final Result * HEMOGLOBIN A1C (09/17/2024 8:46 AM ASSOCIATE DIRECTOR QA) HEMOGLOBIN A1C 5.6 <5.7 % of total Hgb [facility] Comment: For the purpose of screening for the presence of diabetes: <5.7% Consistent with the absence of diabetes 5.7-6.4% Consistent with increased risk for diabetes (prediabetes) > or =6.5% Consistent with diabetes This assay result is consistent with a decreased risk of diabetes. Currently, no consensus exists regarding use of hemoglobin A1c for diagnosis of diabetes in children. According to Canadian Diabetes Association (ADA) guidelines, hemoglobin A1c <7.0% represents optimal control in non- diabetic patients. Different metrics may apply to specific patient populations. Standards of Medical Care in Diabetes(ADA). Blood BLOOD SPECIMEN / Unknown 09/17/2024 8:46 AM ASSOCIATE DIRECTOR QA 09/17/2024 8:47 AM ASSOCIATE DIRECTOR QA Adolfo Contreras MD CHEMISTRY Final Result [employer] [facility] [address] [place] [address], [facility] [address] [place] [address] * LIPID PANEL W REFLEX MEASURED LDL (09/17/2024 8:46 AM ASSOCIATE DIRECTOR QA) [facility] Signature CHOLESTEROL, TOTAL 160 <200 mg/dL [facility] HDL CHOLESTEROL 41 > OR = 40 mg/dL [facility] TRIGLYCERIDES 104 <150 mg/dL [facility] LDL-CHOLESTEROL 99 mg/dL (calc) [facility] Comment: Reference range: <100 Desirable range <100 mg/dL for primary prevention; <70 mg/dL for patients with CHD or diabetic patients with > or = 2 CHD risk factors. LDL-C is now calculated using the Roc-Russel calculation, which is a validated novel method providing better accuracy than the Friedewald equation in the estimation of LDL-C. Roc STEVENS et al. DENICE. 2013;310(19): 3285-1247 (http://education.Marin [employer]/faq/KFT025) CHOL/HDLC RATIO 3.9 <5.0 (calc) [facility] NON HDL CHOLESTEROL 119 <130 mg/dL (calc) [facility] Comment: For patients with diabetes plus 1 major ASCVD risk factor, treating to a non-HDL-C goal of <100 mg/dL (LDL-C of <70 mg/dL) is considered a therapeutic option. Blood BLOOD SPECIMEN / Unknown 09/17/2024 8:46 AM ASSOCIATE DIRECTOR QA 09/17/2024 8:47 AM ASSOCIATE DIRECTOR QA Adolfo Contreras MD CHEMISTRY Final Result Performing Organization Address [facility]/ZIP Co de Phone Number [employer] [facility] [address] [place] [address], [place] [phone] [facility] [address] [place] [address] * PSA TOTAL (DIAG OR SCREEN) (09/17/2024 8:46 AM ASSOCIATE DIRECTOR QA) PSA, TOTAL 0.38 < OR = 4.00 ng/mL [facility] Comment: The total PSA value from this assay system is standardized against the WHO standard. The test result will be approximately 20% lower when compared to the equimolar-standardized total PSA (Yaneth Quincy). Comparison of serial PSA results should be interpreted with this fact in mind. This test was performed using the Siemens chemiluminescent method. Values obtained from different assay methods cannot be used interchangeably. PSA levels, regardless of value, should not be interpreted as absolute evidence of the presence or absence of disease. Blood BLOOD SPECIMEN / Unknown 09/17/2024 8:46 AM ASSOCIATE DIRECTOR QA 09/17/2024 8:47 AM ASSOCIATE DIRECTOR QA Adolfo Contreras MD CHEMISTRY Final Result Performing Organization Address [facility]/ZIP Co de Phone Number [employer] [facility] [address] [facility] [address], [place] [phone] [facility] [address] [place] [address] * BASIC METABOLIC PANEL (09/17/2024 8:46 AM ASSOCIATE DIRECTOR QA) Pathologist [facility] GLUCOSE 98 65 - 99 mg/dL [facility] Comment: Fasting reference interval UREA NITROGEN (BUN) 15 7 - 25 mg/dL [facility] CREATININE 1.01 0.70 - 1.30 mg/dL [facility] EGFR 91 > OR = 60 mL/min/1. 73m2 [facility] BUN/CREATININE RATIO SEE NOTE: 6 - 22 (calc) [facility] Comment: Not Reported: BUN and Creatinine are within reference range. SODIUM 141 135 - 146 mmol/L [facility] POTASSIUM 4.0 3.5 - 5.3 mmol/L [facility] CHLORIDE 101 98 - 110 mmol/L [facility] CARBON DIOXIDE 28 20 - 32 mmol/L [facility] ELECTROLYTE BALANCE 12 7 - 17 mmol/L (calc) [facility] CALCIUM 9.7 8.6 - 10.3 mg/dL [facility] Blood BLOOD SPECIMEN / Unknown 09/17/2024 8:46 AM ASSOCIATE DIRECTOR QA 09/17/2024 8:47 AM ASSOCIATE DIRECTOR QA Adolfo Contreras MD CHEMISTRY Final Result [employer] [facility] [address] [place] [address], [facility] [address] [place] [address] * LC HIV-1/O/2, 4TH GENERATION (11/22/2022 8:55 AM CDT) Pathologist [facility] HIV Scr 4th Gen Non Reactive Non Reactive 11/24/2022 1:09 PM CDT [facility] ([facility] Comment: HIV Negative HIV-1/HIV-2 antibodies and HIV-1 p24 antigen were NOT detected. There is no laboratory evidence of HIV infection. Blood BLOOD SPECIMEN / Unknown Venipuncture / Unknown 11/22/2022 8:55 AM CDT 11/22/2022 8:56 AM CDT Narrative [facility] - 11/24/2022 1:09 PM CDT Performed at: 01 - [facility] [address] [place], [place] [id number] Crm Coordinator: Chemo Husain MD, Phone: [phone] us Adolfo Contreras MD LABORATORY Final Result [facility] ([facility]) [facility] [place] [address], * ANTI HCV (04/03/2022 10:06 AM CDT) [facility] HEPATITIS C ANTIBODY Non-React rachid Non-React rachid 04/03/2022 5:57 PM CDT [facility] Comment:Antibodies to HCV no t detected; does not exclude the possibility of exposure to HCV. Blood BLOOD SPECIMEN / Unknown Venipuncture / Unknown 04/03/2022 10:06 AM CDT 04/03/2022 10:07 AM CDT us Adolfo Contreras MD SEND OUTS Final Result [facility] [address] [place] [address], [place] from Last 3 Months or Most Recently Relevant to Health Maintenance Insurance [facility] Advance Directives * Full Code (Latest Code Status on File) Date Activated Date Inactivated Comments 09/28/2020 10:56 AM 09/28/2020 4:03 PM Question Answer Comments Code Status Discussion: Not Discussed * Full Code Date Activated Date Inactivated Comments 03/07/2017 10:21 AM 03/07/2017 7:15 PM Care Teams Strap Machine Operator Automatic Relationship Specialty Start Date End Date Adolfo Contreras MD [address] [place] [address] PCP - General Family Practice 07/28/19
--- OUTSIDE RECORDS SUMMARY | 2024-11-01 20:35 | XMS_ITS | Continuity of Care Document ---
Author Name [facility] Organization [facility] Care Team Providers Care Dairy Chemist Name Role Phone [facility] Unavailable Unavailable Problems Combined list of problems from Department of [facility] and [facility] facilities. It does not include entries that were removed or entered in error. Problem Status Onset Date Problem Type Date of Resolution Comments Source Allergic rhinitis Active Condition [place] [facility] Cervicalgia Active Condition [place] [facility] CTS - Carpal tunnel syndrome Active Condition [place] Deviated nasal septum Active Condition [facility] ([facility]) Hyperlipidemia Active Condition [place] Low back pain Active Condition [place] [facility] Nasal congestion Active Condition [place] Shoulder pain Active Condition [facility] [facility] Tinnitus Active Condition [place] [facility] Medications Combined list of outpatient medications from Department of [facility] and [facility] facilities.Medications provided include 1) outpatient medications from the last 15 months, and 2) patient-reported medications. Medication Details Route Status Patient Instructions Prescription Expires Prescription Number Last Dispense Date Ordering Provider Order Date Order Qty Source IBUPROFEN 600MG TAB TAKE ONE TABLET BY MOUTH THREE TIMES A DAY NEEDED ORAL ACTIVE MICHELET HARRIS 2018 [facility] MULTIVITAMI NS CAP/TAB TAKE ONE TABLET BY MOUTH EVERY DAY ORAL ACTIVE MIC[facility]ARRIS 2018 [facility] Immunizations Combined list of available immunizations from the Department of [facility] and [facility] facilities. Immunization Series Date Given Administered By Site Reaction Lot Number CVX Code Drug Die Sizer Status Comments Source INFLUENZA, INJECTABLE, QUADRIVALENT 2018 158 complet ed Partner: [facility]. Administe red by: RUMA LAKHANI (TYM=[phone]). Partner 3 Lot#: [id number] Mfr: SEQIRUS; Dosage: 0.5 [facility] INFLUENZA, SEASONAL, INJECTABLE 2017 141 complet ed [facility] INFLUENZA, SEASONAL, INJECTABLE 2015 141 complet ed [place] [facility] TDAP 2014 115 complet ed [facility] [employer] Encounters Combined list of: 1) Encounters from Department of Veterans Affairs facilities going backup to the last 18 months, not all [place] inpatient encounters are included; 2) Encounters from the Department of [facility] facilities going backup to 280 months. Location Location Details Encounter Type Encounter Number Reason For Visit Attending Provider ADM Date DC Date Status Disposition Source [place] [facility] Outpatient Encounter [id number] 08/14 [facility] [place] [facility] [id number] [facility] [place] [facility] [id number] 10/01 [facility] [place] [facility] [id number] 03/04 [facility] [place] [facility] En[facility] [id number] Renato PORTILLO 03/05 [facility] [place] [facility] [facility] [id number] 03/05 [facility] [place] [facility] [place] [facility] [id number] 05/12 [facility] [place] [facility] [facility] [id number] 05/13 [facility] [place] [facility] [place] [facility] [id number] 05/14 [facility] [place] [facility] [place] [facility] [id number] 05/21 [facility] [place] [facility] [facility] [id number] 05/26 [facility] [place] [facility] [id number] 05/27 [facility] [place] [facility] En[facility] [id number] 05/29 [place] [facility] [place] [facility] Out[place] Encounter [id number] 06/04 [place] [facility] [place] [facility] Outpatient Encounter [id number] 06/06 [place] [facility] [place] [facility] Outpatient Encounter [id number] 06/10 [place] [facility] [place] [facility] Outpatient Encounter [id number] 07/24 [place] [facility] [place] [facility] Outpatient Encounter [id number] 09/24 [place] [facility] [place] [facility] Outpatient Encounter [id number] 09/26 [place] [facility] [place] [facility] Outpatient Encounter [id number] 09/29 [place] [facility] [place] [facility] Outpatient Encounter [id number] 10/03 [place] [facility] [place] [facility] Outpatient Encounter [id number] 10/14 [place] [facility] [place] [facility] Outpatient Encounter [id number] 10/27 [facility] Social History Combined list of available smoking, tobacco, and other social history from Department of Defense and Veterans Affairs facilities. Social History Type Response Date Comment Sour e Tobacco smoking status [facility]-TOBACCO FORMER USER 08/01/2018 [place] ([facility]) History of tobacco use [place]-TOBACCO QUIT 5 TO < 15 YRS 08/01/2018 [place] ([facility]) History of tobacco use FORMER TOBACCO US E >1Y <7Y 04/27/2016 [place] [place] [place] Plan of Care List of future care activities from Department of Veterans Affairs facilities. Additional future care activities may be listed in the Assessment and Plan section. Date/Time Care Activity Care Activity Detail Facili ty 09/30/2024 Consult Order [facility] H[facility] Cons Link Wire Fabric Machine Operator's Choice [facility]
== END 2024-11-01 20:38 | disposition home or self-care (01) ==
LOC: ED 20:34
PROVIDERS: Emergency Provider Family Medicine; PCP Family Medicine
DX: S61.216A Laceration without foreign body of right little finger without damage to nail, initial encounter (principal); W26.9XXA Contact with unspecified sharp object(s), initial encounter
CPT/HCPCS: 12001; 99283